=== PATIENT | male | born 1965 | race Caucasian/White ===

== ENCOUNTER 2019-10-17 06:46 | Day surgery (SDC) | payer OTHER ==
[2019-10-17] MEDS ORDERED: LACTATED RINGERS 1,000 ML IV ONE (07:08)
[2019-10-17] MEDS ORDERED: fentaNYL 250 MCG/5 ML VIAL IVP ONE (08:22)
[2019-10-17] MEDS ORDERED: MIDAZOLAM 2 MG/2 ML VIAL IVP ONE (08:22)
[2019-10-17 09:31] VITALS: BP 116/68
== END 2019-10-17 06:47 | disposition home or self-care (01) ==
LOC: SDS 06:46 → EDSEX 08:15
PROVIDERS: ATTEND Internal Medicine Gastroenterology
DX: Z12.11 Encounter for screening for malignant neoplasm of colon (principal); K57.30 Diverticulosis of large intestine without perforation or abscess without bleeding; Z86.010 Personal history of colon polyps
CPT/HCPCS: 45378; J3010; J7120

== ENCOUNTER 2021-06-24 13:09 | Outpatient (CLI) | payer OTHER | END 2021-06-24 13:10 | disposition home or self-care (01) | LOC: RT 13:09 | PROVIDERS: ATTEND Family Medicine | DX: R06.00 Dyspnea, unspecified (principal) | CPT/HCPCS: 94010 ==